=== PATIENT | male | born 1995 | race Asian ===

== ENCOUNTER 2017-09-13 14:39 | Emergency (ER) | payer BC ==
[2017-09-13 14:49] VITALS: BP 126/85
--- NOTE | 2017-09-13 15:50 | UC ---
Skin Complaint HPI - HPI Summary HPI Summary: small amount of itching and erythema right axilla for 3 months---. Is concerned he may have a swollen area - History of Current Complaint Chief Complaint: UCSkin Time Seen by Provider: 09/13/17 15:36 Stated Complaint: RIGHT ARM PIT COMPLAINT Hx Obtained From: Patient Onset/Duration: Gradual Onset, Lasting Weeks - 12, Still Present Timing: Constant Current Severity: None Pain Intensity: 0 Pain Scale Used: 0-10 Numeric Location: Discrete - right axilla Character: Redness Aggravating Factor(s): Nothing Alleviating Factor(s): Nothing Associated Signs & Symptoms: Positive: Nausea - Allergy/Home Medications Allergies/Adverse Reactions: Allergies Allergy/AdvReac Type Severity Reaction Status Date / Time No Known Allergies Allergy Verified 09/13/17 14:49 Home Medications: Home Medications BuPROPion XL* [Bupropion XL*] 300 mg PO DAILY 09/13/17 [History Confirmed ] Cholecalciferol TAB* [Vitamin D TAB*] 2,000 units PO DAILY 09/13/17 [History Confirmed 09/13/17] DULoxetine DR CAP* [Cymbalta CAP*] 30 mg PO DAILY 09/13/17 [History Confirmed ] Fluoxetine HCl [Prozac] 20 mg PO DAILY 09/13/17 [History Confirmed 09/13/17] Multivitamin [Multivitamins] 1 cap PO DAILY 09/13/17 [History Confirmed 09/13/17 ] [place]-3 Fatty Acids (Nf) [Fish Oil (NF)] 1 cap PO DAILY 09/13/17 [History Confirmed 09/13/17] Zinc Gluconate [Elemental Zinc] 30 mg PO BID 09/13/17 [History Confirmed ] Review of Systems Constitutional: Negative Skin: Negative, Other - erythema and itching right axilla Eyes: Negative ENT: Negative Respiratory: Negative Cardiovascular: Negative Gastrointestinal: Negative Genitourinary: Negative Motor: Negative Neurovascular: Negative Musculoskeletal: Negative Neurological: Negative Psychological: Negative Is Patient Immunocompromised?: No All Other Systems Reviewed And Are Negative: Yes PMH/Surg Hx/FS Hx/Imm Hx Previously Healthy: Yes - Surgical History Surgical History: Yes Surgery Procedure, Year, and Place: WISDOM TEETH - Family History Known Family History: Positive: None - Social History Occupation: Student Lives: With Family Alcohol Use: Occasionally Substance Use Type: None Smoking Status (MU): Never Smoked Tobacco Physical Exam Triage Information Reviewed: Yes Appearance: Well-Appearing, No Pain Distress, Well-Nourished Vital Signs: Initial Vital Signs Temp 99.7 F 09/13/17 14:44 Pulse 108 09/13/17 14:44 Resp 16 09/13/17 14:44 BP 126/85 09/13/17 14:44 Pulse Ox 98 09/13/17 14:44 Vital Signs Reviewed: Yes Eye Exam: Normal Eyes: Positive: Conjunctiva Clear ENT Exam: Normal ENT: Positive: Normal ENT inspection, Hearing grossly normal. Negative: Trismus , Muffled voice, Hoarse voice Dental Exam: Normal Neck exam: Normal Neck: Positive: Supple, Nontender, No Lymphadenopathy Respiratory Exam: Normal Respiratory: Positive: Chest non-tender, No respiratory distress, No accessory muscle use Cardiovascular Exam: Normal Cardiovascular: Positive: RRR, Pulses Normal, Brisk Capillary Refill Musculoskeletal Exam: Normal Musculoskeletal: Positive: Strength Intact, ROM Intact, No Edema Neurological Exam: Normal Neurological: Positive: Alert Psychological Exam: Normal Psychological: Positive: Normal Response To Family Skin Exam: Other Skin: Positive: Other - patch of erythema, no swollen lymph tissue , no abscess noted Course/Dx - Course Course Of Treatment: mild soap and water wash, lotisone cream BID for up to 2 weeks follow with pcp prn - Diagnoses Provider Diagnoses: dermititis right axilla Discharge - Sign-Out/Discharge Documenting (check all that apply): Discharge/Admit/Transfer - Discharge Plan Condition: Stable Disposition: HOME Prescriptions: Clotrimazole/Betamethasone* [Lotrisone Cream*] 1 applic TOPICAL BID #30 gm Patient Education Materials: Antifungals (On the skin) Referrals: Vidal Weber MD [Primary Care Provider] - If Needed - Billing Disposition and Condition Condition: STABLE Disposition: Home
== END 2017-09-13 15:55 | disposition home or self-care (01) ==
LOC: UCEAST 14:39
DX: L30.9 Dermatitis, unspecified (principal); R11.0 Nausea
CPT/HCPCS: 99212; G0463